=== PATIENT | female | born 1990 | race Caucasian/White ===

== ENCOUNTER 2023-12-29 13:33 | Outpatient (REF) | payer OTHER, SELFPAY ==
[2023-12-29 13:57] LABS: MANUAL DIFF FLAG NO
[2023-12-29 14:22] LABS: Basophils Absolute Auto 0.1 X10*3/uL (0.0-0.2); Basophils Percent Auto 0.8 % (0-2); Eosinophils Absolute Auto 0.4 X10*3/uL (0.0-0.4); Eosinophils Percent Auto 4.6 % (0-4); Hematocrit 42.2 % (37.0-47.0); Hemoglobin 13.7 g/dl (12.0-16.0); Imm Gran Abs Auto 0.03 X10*3/uL (0.00-0.03); Imm Gran Pct Auto 0.4 % (0.0-0.4); Lymphocytes Absolute Auto 3.1 X10*3/uL (1.2-4.9); Lymphocytes Percent Auto 35.9 % (20-40); Mean Corpuscular HGB Conc 32.5 g/dl (31.0-35.0); Mean Corpuscular Hemoglobin 28.5 pg (27.0-33.0); Mean Corpuscular Volume 87.9 fL (80.0-98.0); Mean Platelet Volume 10.1 fL (9.4-12.3); Monocytes Absolute Auto 0.5 X10*3/uL (0.1-1.2); Neutrophils Absolute Auto 4.5 x10*3/uL (2.0-8.3); Neutrophils Percent Auto 52.3 % (45-73); Platelet Count 301 X10*3/uL (160-400); Red Cell Distribution Width 12.9 % (11.0-16.0); White Blood Count 8.6 X10*3/uL (4.8-10.8)
[2023-12-29 14:48] LABS: Alanine Aminotransferase 26 U/L (0-31); Albumin Level 4.4 g/dL (3.5-5.0); Alkaline Phosphatase 61 U/L (39-117); Anion Gap 13 (12-20); Aspartate Amino Transferase 19 U/L (5-31); Bilirubin Total 0.5 mg/dL (0.0-1.0); Blood Urea Nitrogen 12 mg/dL (9-16); Calcium 9.6 mg/dL (8.4-10.2); Carbon Dioxide 23 mmol/L (22-29); Chloride 108 mmol/L (96-108); Estimated Glomerular Filt Rate > 60; Glucose Random 92 mg/dL (60-115); Potassium 4.2 mmol/L (3.3-5.1); Sodium 140 mmol/L (135-145); Total Protein 7.1 g/dL (6.5-8.0)
[2024-01-02 16:53] LABS: HCV RNA PCR Qn 3.91 Log IU/mL (NOT DETECTED); HCV RNA PCR Qn 8060 IU/mL (NOT DETECTED)
[2024-01-09 17:48] LABS: HCV Genotype LiPA 1a
== END 2023-12-29 13:34 | disposition home or self-care (01) ==
LOC: HO.LAB 13:33
PROVIDERS: PCP Internal Medicine; Visit Provider Internal Medicine
DX: Z00.00 Encounter for general adult medical examination without abnormal findings (principal); B18.2 Chronic viral hepatitis C; D22.5 Melanocytic nevi of trunk; D22.9 Melanocytic nevi, unspecified; Z13.31 Encounter for screening for depression
CPT/HCPCS: 36415; 80053; 85025; 87522; 87902

== ENCOUNTER 2024-05-13 15:20 | Outpatient (REF) | payer OTHER, SELFPAY ==
[2024-05-13 15:39] LABS: MANUAL DIFF FLAG NO
[2024-05-13 15:44] LABS: Basophils Absolute Auto 0.1 X10*3/uL (0.0-0.2); Basophils Percent Auto 0.7 % (0-2); Eosinophils Absolute Auto 0.1 X10*3/uL (0.0-0.4); Eosinophils Percent Auto 1.4 % (0-4); Hemoglobin 14.9 g/dl (12.0-16.0); Imm Gran Abs Auto 0.02 X10*3/uL (0.00-0.03); Imm Gran Pct Auto 0.2 % (0.0-0.4); Lymphocytes Absolute Auto 2.6 X10*3/uL (1.2-4.9); Lymphocytes Percent Auto 25.9 % (20-40); Mean Corpuscular HGB Conc 33.1 g/dl (31.0-35.0); Mean Corpuscular Hemoglobin 28.8 pg (27.0-33.0); Mean Corpuscular Volume 86.9 fL (80.0-98.0); Mean Platelet Volume 9.8 fL (9.4-12.3); Monocytes Absolute Auto 0.5 X10*3/uL (0.1-1.2); Monocytes Percent Auto 4.5 % (2-11); Neutrophils Absolute Auto 6.9 x10*3/uL (2.0-8.3); Neutrophils Percent Auto 67.3 % (45-73); Platelet Count 270 X10*3/uL (160-400); Red Blood Count 5.18 X10*6/uL (4.20-5.50); Red Cell Distribution Width 13.1 % (11.0-16.0); White Blood Count 10.2 X10*3/uL (4.8-10.8)
[2024-05-13 15:50] LABS: INTERNATIONAL NORM RATIO 0.9 (0.9-1.1)
[2024-05-13 16:39] LABS: Alanine Aminotransferase 37 U/L (0-31); Albumin Level 4.8 g/dL (3.5-5.0); Alkaline Phosphatase 56 U/L (39-117); Anion Gap 9 (12-20); Aspartate Amino Transferase 24 U/L (5-31); Bilirubin Direct 0.3 mg/dL (0.0-0.5); Bilirubin Total 0.8 mg/dL (0.0-1.0); Blood Urea Nitrogen 10 mg/dL (9-16); Calcium 9.6 mg/dL (8.4-10.2); Carbon Dioxide 25 mmol/L (22-29); Chloride 109 mmol/L (96-108); Estimated Glomerular Filt Rate > 60; Glucose Random 87 mg/dL (60-115); Potassium 3.4 mmol/L (3.3-5.1); Sodium 140 mmol/L (135-145)
[2024-05-13 16:51] LABS: Thyroid Stimulating Hormone 0.99 uIU/mL (0.32-4.0)
[2024-05-13 17:11] LABS: T4 Thyroxine 7.2 ug/dL (4.5-12.0)
[2024-05-14 15:43] LABS: HCV Log PCR 5.24 Log IU/mL (NOT DETECTED); HepC Viral Load 173000 IU/mL (NOT DETECTED)
[2024-05-16 08:15] LABS: HBS Num1 > 1000.00 mIU/mL (0-7.99); HBc Num1 0.12 S/CO (0.00-0.79); HBsAGNum1 0.39 S/CO (0.00-0.99); HIV AB/AG Nonreactive (Nonreactive); HIV Num 1 0.04 S/CO (0.00-0.99); Hepatitis B Core Antibody Nonreactive (Nonreactive); Hepatitis B Surface Antigen Negative (Negative); ~HepC Num1 13.03 S/CO (0.00-0.79); ~Hepatitis B Surface Antibody REACTIVE (Nonreactive); ~Hepatitis C Antibody Reactive (Nonreactive)
[2024-05-16 13:18] LABS: Alpha Fetoprotein 4.2 ng/mL
--- OUTSIDE RECORDS SUMMARY | 2024-05-18 10:49 | XMS_ITS ---
Author Organization [facility] Address [address] [place] [address] Care Team Providers Care Ambulance Mechanic Name Role Phone Shani De La Rosa Primary Care Provider Unavailab Mamadou Ulloa [phone] ALLERGIES No Known Allergies RESULTS Component Value Reference Range Notes Prothrombin Time INR Reviewed date:05/13/2024 04:30:01 PM Interpretation: Performing Lab:[address] [address] Notes/Report: Prothrombin Time 11.0 10.9-12.4 SEC INTERNATIONAL NORM RATIO 0.9 0.9-1.1 INTERNATIONAL NORMALIZED RATIO (INR) REFERENCE RANGES Reference Range For patients not on anticoagulant therapy: 0.9 - 1.1 INR ranges for oral anticoagulant therapy: For prevention and treatment of venous thrombosis and pulmonary embolism: 2.0 - 3.0 For acute myocardial infarction with aspirin therapy: 2.0 - 3.0 For acute myocardial infarction without aspirin therapy: 3.0 - 4.0 For patients with mechanical prosthetic heart valves: 2.5 - 3.5 T4 Thyroxine Reviewed date:05/13/2024 06:09:46 PM Interpretation: Performing Lab:[address] [address] Notes/Report: T4 Thyroxine 7.2 4.5-12.0 ug/dL HIV Ab/Ag Reviewed date:05/17/2024 09:19:18 PM Interpretation: Performing Lab:[facility], [address] [place] [phone] Notes/Report: HIV AB/AG Nonreactive Nonreactive HIV-1 p24 Ag and/or HIV-1/HIV-2 Ab not detected. A test result that is nonreactive does not exclude the possibility of exposure to or infection with HIV-1 and/or HIV-2. Nonreactive results in this assay for individuals with prior exposure to HIV-1 and/or HIV-2 may be due to antigen and antibody levels that are below the limit of detection of this assay. [employer] [facility] [employer] HIV Ag/Ab Combo assay result and supplemental assay results should be interpreted in conjunction with the patient's clinical presentation, history and other laboratory results. If the results are inconsistent with clinical evidence, additional testing is suggested to confirm the result. REASON FOR VISIT Patient presents today for HEPATITIS C 1A MEDICATIONS Medication SIG (Take, Route, Fr equency, Duration) Notes Start Date End Date Status Zofran ODT Active Omeprazole 20 MG 1 Orally Once a day every morning for 30 day(s) 05/13/2024 Active SOCIAL HISTORY Tobacco Use: Social History Observation Description Date Details (start date - stop date) Current Smoker NA - NA Sex Assigned At : Social History Observation Description Sex Assigned At Unknown Tobacco Use/Smoking Question Answer Notes Patient is a current smoker How often do you smoke cigarettes? every day How many cigarettes a day do you smoke? 5 or les s Alcohol Screen Question Answer Notes Did you have a drink contain ing alcohol in the past year? Yes How often did you have a dri nk containing alcohol in the past year? Never (0 point) How many drinks did you have on a typical day when you were drinking in the past year? 1 or 2 drinks (0 point) How often did you have 6 or more drinks on one occasion in the past year? Never (0 point) Points 0 Interpretation Negative PROBLEMS Problem Type ICD Code Onset Dates Problem Status W/U Status Risk SNOMED Code Notes Problem Nausea (R11.0) Active confirmed Nausea (024172153) Problem Chronic hepatitis C (B18.2) Active confirmed Chronic hepatitis C (771175107) VITAL SIGNS BMI 20.30 kg/m2 05/13/2024 Blood pressure systolic 00 mm Hg 05/13/20 24 Blood pressure diastolic 00 mm Hg 024 Height 5 ft 5 in in 05/13/2024 Weight 122 lbs 05/13/2024 Encounters Encounter Location Date Provider Diagnosis [facility] [address] [place] [address] 05/13/2024 Mamadou Casas Nausea R11.0 and Chronic hepatitis C B18.2 ASSESSMENTS Encounter Date Diagnosis Assessment Notes Treatment Notes Treatment Clinical Notes 05/13/2024 Nausea (ICD-10 - R11.0) Use Zofran as needed for nausea, but I will send over a prescription for a medicine to lower your stomach acid that you can try for two months 05/13/2024 Chronic hepatitis C (ICD-10 - B18.2) Need U/S from [facility] in 2023 PLAN OF TREATMENT Medication Medication Name Sig Start Date Stop Date Notes Omeprazole 20 MG 1 Orally Once a day every morning for 30 day(s) 05/13/2024 Treatment Notes Assessment Notes Nausea Use Zofran as needed for nausea, but I will send over a prescription for a medicine to lower your stomach acid that you can try for two months Chronic hepatitis C Need U/S from [facility] in 2023 Pending Test Test Name Order Date CHEM 7 PROFILE 05/13/2024 LIVER PROFILE 05/13/2024 TSH (THYROID STIMULATING HORMONE) 2023 CBC w DIFF 05/13/2024 HEPATITIS B PROFILE 05/13/2024 ALPHA-FETOPROTEIN,TUMOR MARKER 4 HEPATITIS C VIRAL LOAD 05/13/2024 HCV LIVER FIBROSIS, FIBRO TEST Next Appt Details Follow Up: OV October or November 25, Reason: Provider Name:Mamadou Casas , 11/10/2024 09:40:00 AM, [address], [address], [place], [address],
--- OUTSIDE RECORDS SUMMARY | 2024-05-18 10:49 | XMS_ITS | Patient Health Record ---
Author Organization [facility] Address [address] [place] [address] Care Team Providers Care Plain Clothes Police Officer Name Role Phone Shani De La Rosa Primary Care Provider Unavailab Mamadou Ulloa [phone] ALLERGIES No Known Allergies RESULTS Component Value Reference Range Notes Prothrombin Time INR Reviewed date:05/13/2024 04:30:01 PM Interpretation: Performing Lab:[address] [address] Notes/Report: Prothrombin Time 11.0 10.9-12.4 SEC INTERNATIONAL [...] Thyroxine Reviewed date:05/13/2024 06:09:46 PM Interpretation: Performing Lab:[facility], [address] [place] [phone] Notes/Report: T4 Thyroxine 7.2 4.5-12.0 ug/dL HIV Ab/Ag Reviewed date:05/17/2024 09:19:18 PM Interpretation: Performing Lab:[address] [address] Notes/Report: HIV AB/AG Nonreactive Nonreactive HIV-1 p24 [...] limit of detection of this assay. The [employer] HIV Ag/Ab Combo assay result and supplemental assay results should be interpreted in conjunction with the patient's clinical presentation, history and other laboratory results. If the results are inconsistent with clinical evidence, additional testing is suggested to confirm the result. Hep C Viral Load (Not yet re viewed by provider) Interpretation: Performing Lab:[facility], [address] [place] [phone] Notes/Report: HepC Viral Load 602050 NOT DETECTED IU/mL HCV Log PCR 5.24 NOT DETECTED Log IU/mL For additional information, please refer to http://education.QuadROI/faq/FA Q22v1 (This link is being provided for informational/ educational purposes only.) THIS TEST WAS PERFORMED AT: [facility] [address] [place] [phone] MAVERICK CORNELL MD Complete Blood Count Auto Di ff Reviewed date:05/13/2024 04:29:41 PM Interpretation: Performing Lab:[facility], [address] [place] [phone] Notes/Report: White Blood Count 10.2 4.8-10.8 X10*3/uL Red Blood Count 5.18 4.20-5.50 X10*6/uL Hemoglobin 14.9 12.0-16.0 g/dl Hematocrit 45.0 37.0-47.0 % Mean Corpuscular Volume 86.9 80.0-98.0 fL Mean Corpuscular Hemoglobin 28.8 27.0-33.0 pg Mean Corpuscular HGB Conc 33.1 31.0-35.0 g/dl Red Cell Distribution Width 13.1 11.0-16.0 % Platelet Count 270 160-400 X10*3/uL Mean Platelet Volume 9.8 9.4-12.3 fL Neutrophils Percent Auto 67.3 45-73 % Imm Gran Pct Auto 0.2 0.0-0.4 % Lymphocytes Percent Auto 25.9 20-40 % Monocytes Percent Auto 4.5 2-11 % Eosinophils Percent Auto 1.4 0-4 % Basophils Percent Auto 0.7 0-2 % NRBC Pct Auto 0.0 0.0-0.2 /100WBC Neutrophils Absolute Auto 6.9 2.0-8.3 x10*3/u L Imm Gran Abs Auto 0.02 0.00-0.03 X10*3/uL Lymphocytes Absolute Auto 2.6 1.2-4.9 X10*3/u L Monocytes Absolute Auto 0.5 0.1-1.2 X10*3/uL Eosinophils Absolute Auto 0.1 0.0-0.4 X10*3/u L Basophils Absolute Auto 0.1 0.0-0.2 X10*3/uL NRBC Abs Auto 0.000 0.0-0.012 X10*3/uL Liver Panel Reviewed date:05/13/2024 06:09:10 PM Interpretation: Performing Lab:[facility], [address] [place] [phone] Notes/Report: Bilirubin Total 0.8 0.0-1.0 mg/dL Bilirubin Direct 0.3 0.0-0.5 mg/dL Aspartate Amino Transferase 24 5-31 U/L Alanine Aminotransferase 37 0-31 U/L Total Protein 8.0 6.5-8.0 g/dL Albumin Level 4.8 3.5-5.0 g/dL Alkaline Phosphatase 56 39-117 U/L Basic Metabolic Panel Reviewed date:05/13/2024 06:09:33 PM Interpretation: Performing Lab:[facility], [address] [place] [phone] Notes/Report: Sodium 140 135-145 mmol/L Potassium 3.4 3.3-5.1 mmol/L Chloride 109 96-108 mmol/L Carbon Dioxide 25 22-29 mmol/L Anion Gap 9 12-20 Blood Urea Nitrogen 10 9-16 mg/dL Creatinine 0.79 0.5-1.4 mg/dL Estimated Glomerular Filt Rate > 60 Chronic Kidney Disease: Estimated GFR < 60 mL/min/1.73m2 Severe Kidney Disease: Estimated GFR < 15 mL/min/1.73m2 Glucose Random 87 60-115 mg/dL Calcium 9.6 8.4-10.2 mg/dL Thyroid Stimulating Hormone Reviewed date:05/13/2024 06:09:40 PM Interpretation: Performing Lab:[facility], [address] [place] [phone] Notes/Report: Thyroid Stimulating Hormone 0.99 0.32-4.0 uIU/ mL TSH 3rd Generation ([facility]) Hepatitis B Profile Reviewed date:05/17/2024 09:18:52 PM Interpretation: Performing Lab:[facility], [address] [place] [phone] Notes/Report: Hepatitis B Surface Antibody REACTIVE Nonreactive REACTIVE: > 11.99 mIU/mL Hepatitis B Core Antibody Nonreactive Nonreactive Hepatitis B Surface Antigen Negative Negative Hepatitis C Antibody Reviewed date:05/17/2024 09:19:03 PM Interpretation: Performing Lab:[facility], [address] [place] [phone] Notes/Report: Hepatitis C Antibody Reactive Nonreactive Presump tive evidence of antibodies to HCV. REASON FOR REFERRAL No Information MEDICATIONS Medication SIG (Take, Route, Fr equency, [...] Notes Problem Nausea (R11.0) Active confirmed Nausea (224415777) Problem Chronic hepatitis C (B18.2) Active confirmed Chronic hepatitis C (457356895) VITAL SIGNS Blood pressure diastolic 00 mm Hg 05/13/2024 Height 5 ft 5 in in 05/13/2024 Blood pressure systolic 00 mm Hg 05/13/2024 Weight 122 lbs 05/13/2024 BMI 20.30 kg/m2 05/13/2024 Encounters Encounter Location Date Provider Diagnosis [facility] [address] [place] [address] 05/13/2024 Mamadou Casas Nausea R11.0 and Chronic [...] C (ICD-10 - B18.2) Need U/S from [facility] in 2023 PLAN OF TREATMENT Pending Test Test Name Order Date CHEM 7 PROFILE 05/13/2024 LIVER PROFILE 05/13/2024 TSH (THYROID STIMULATING HORMONE) 2023 CBC w DIFF 05/13/2024 HEPATITIS B PROFILE 05/13/2024 ALPHA-FETOPROTEIN,TUMOR MARKER 4 HEPATITIS C VIRAL LOAD 05/13/2024 HCV LIVER FIBROSIS, FIBRO TEST 4 Hep C Viral Load 05/13/2024 Next Appt Details Provider Name:Mamadou Casas , 11/10/2024 09:40:00 AM, [address], [address], [place], [address], Insurance Providers Payer Name Payer Address Payer Phone Subscriber Number Group Number Insured Name Patient Relationship to Insured Coverage Start Date Coverage End Date [facility] [employer] [facility] [address] [address] [place], [place] [id number] LUCERO MCDONOUGH Self - patient is the insured MED[place] OF [place] [address] [place] [address] [id number] CIEBOTER, LUCERO Self - patient is the insured MEDICAL (GENERAL) HISTORY Medical History History ICD Code Kidney stones Chronic Hep C-Genotype 1 A Surgical History Surgery Date(Month/Year) 2023
[2024-05-23 16:30] LABS: FIB-ALT 23 U/L (6-29); FIB-Alpha-2-Macroglobulin 190 mg/dL (106-279); FIB-Apolipoprotein A1 195 mg/dL (101-198); FIB-GGT 16 U/L (3-50); FIB-Haptoglobin 129 mg/dL (43-212); FIB-Total Bilirubin 0.6 mg/dL (0.2-1.2); Liver Fibrosis Score 0.06; Liver Fibrosis Stage F0; Nec Inflam Act Grade A0; Nec Inflam Act Score 0.07; Reference ID 5248223
== END 2024-05-13 15:21 | disposition home or self-care (01) ==
LOC: HO.LAB 15:20
PROVIDERS: PCP Internal Medicine; Visit Provider Internal Medicine
DX: B18.2 Chronic viral hepatitis C (principal)
CPT/HCPCS: 36415; 80048; 80076; 81596; 82105; 84436; 84443; 85025; 85610; 86704; 86706; 86803; 87340; 87389; 87522

== ENCOUNTER 2024-08-09 07:10 | Emergency (ER) | payer OTHER, SELFPAY ==
[2024-08-09 07:18] VITALS: BP 104/65; PULSE 61; RESP 16; TEMP 36.5; O2SAT 100; BMI 20.8
[2024-08-09 08:17] LABS: Basophils Absolute Auto 0.1 X10*3/uL (0.0-0.2); Basophils Percent Auto 0.6 % (0-2); Eosinophils Absolute Auto 0.1 X10*3/uL (0.0-0.4); Eosinophils Percent Auto 0.6 % (0-4); Hematocrit 41.3 % (37.0-47.0); Hemoglobin 14.4 g/dl (12.0-16.0); Imm Gran Abs Auto 0.03 X10*3/uL (0.00-0.03); Imm Gran Pct Auto 0.3 % (0.0-0.4); Lymphocytes Absolute Auto 1.5 X10*3/uL (1.2-4.9); Lymphocytes Percent Auto 17.3 % (20-40); MANUAL DIFF FLAG NO; Mean Corpuscular HGB Conc 34.9 g/dl (31.0-35.0); Mean Corpuscular Hemoglobin 29.8 pg (27.0-33.0); Mean Corpuscular Volume 85.5 fL (80.0-98.0); Monocytes Absolute Auto 0.4 X10*3/uL (0.1-1.2); Monocytes Percent Auto 4.6 % (2-11); Neutrophils Absolute Auto 6.7 x10*3/uL (2.0-8.3); Neutrophils Percent Auto 76.6 % (45-73); Platelet Count 347 X10*3/uL (160-400); Red Blood Count 4.83 X10*6/uL (4.20-5.50); Red Cell Distribution Width 12.8 % (11.0-16.0); White Blood Count 8.7 X10*3/uL (4.8-10.8)
[2024-08-09 08:29] LABS: UPreg QC Valid YES; Urine Pregnancy NEGATIVE (NEGATIVE)
[2024-08-09 08:30] LABS: Appearance Urine Turbid; Color Urine Dark Yellow; Glucose Urine UA Negative (Negative); Leukocyte Esterase Urine Small (1+) (Negative); Nitrite Urine Negative (Negative); PH 6.5 (5.0-9.0); Specific Gravity - Urine >= 1.030 (1.005-1.025); UMIC TRIGGER UACC YES; Urine Blood Negative (Negative); Urine Ketones 80 mg/dL (Negative); Urine Protein 30 (1+) mg/dL (Neg-Trace)
[2024-08-09 08:36] LABS: Alanine Aminotransferase 23 U/L (0-31); Albumin Level 4.5 g/dL (3.5-5.0); Alkaline Phosphatase 55 U/L (39-117); Anion Gap 13 (12-20); Aspartate Amino Transferase 26 U/L (5-31); Bilirubin Total 0.8 mg/dL (0.0-1.0); Blood Urea Nitrogen 15 mg/dL (9-16); Calcium 9.3 mg/dL (8.4-10.2); Carbon Dioxide 24 mmol/L (22-29); Chloride 107 mmol/L (96-108); Estimated Glomerular Filt Rate > 60; Glucose Random 108 mg/dL (60-115); Potassium 3.4 mmol/L (3.3-5.1); Sodium 141 mmol/L (135-145); Total Protein 7.5 g/dL (6.5-8.0)
--- OUTSIDE RECORDS SUMMARY | 2024-08-09 08:36 | XMS_ITS ---
Author Organization [facility] Address [address] [place] [address] Care Team Providers Care Weed Control Inspector Name Role Phone Shani De La Rosa Primary Care Provider Unavailab Mamadou Ulloa [phone] REASON FOR VISIT Script sent MEDICATIONS Medication SIG (Take, Route, Frequency, Duration) Notes Start Date End Date Status Ledipasvir-Sofosbuvir 90-400 MG 1 tablet Orally Once a day for 30 days 06/08/2024 Active Encounters Encounter Location Date Provider Diagnosis [place] [facility] [address] [place] [phone] 06/07/2024 Mamadou Casas PLAN OF TREATMENT Medication Medication Name Sig Start Date Stop Date Notes Ledipasvir-Sofosbuvir 90-400 MG 1 tablet Orally Once a day for 30 days 06/08/2024 Next Appt Details Provider Name:Mamadou Casas , 11/10/2024 09:40:00 AM, [address] [place] [address], [address], [place], [address],
--- OUTSIDE RECORDS SUMMARY | 2024-08-09 08:36 | XMS_ITS ---
Author Organization [facility] Address [address] [place] [address] Care Team Providers Care Pit And Auxiliaries Supervisor Name Role Phone AnselmotevinShani Primary Care Provider Unavailab Mamadou Ulloa Unavailable [phone] Encounters Encounter Location Date Provider Diagnosis [facility] [address] [place] [address] [place] [phone] 06/09/2024 Mamadou Casas PLAN OF TREATMENT Next Appt Details Provider Name:Mamadou Casas , 11/10/2024 09:40:00 AM, [address] [place] [address], [address], [place], [address],
--- OUTSIDE RECORDS SUMMARY | 2024-08-09 08:37 | XMS_ITS | Patient Health Record ---
Author Organization [facility] Address [address] [place] [address] Care Team Providers Care Claim Auditor Name Role Phone Shani De La Rosa Primary Care Provider Unavailab Mamadou Ulloa [phone] ALLERGIES No Known Allergies RESULTS Component Value Reference Range Notes Prothrombin Time INR Reviewed date:05/13/2024 04:30:01 PM Interpretation: Performing Lab:[address] [phone] Notes/Report: Prothrombin Time 11.0 10.9-12.4 SEC INTERNATIONAL [...] Thyroxine Reviewed date:05/13/2024 06:09:46 PM Interpretation: Performing Lab:[address] [phone] Notes/Report: T4 Thyroxine 7.2 4.5-12.0 ug/dL HIV Ab/Ag Reviewed date:05/17/2024 09:19:18 PM Interpretation: Performing Lab:[address] [address] Notes/Report: HIV AB/AG Nonreactive Nonreactive HIV-1 p24 [...] limit of detection of this assay. The [employer] HIV Ag/Ab Combo assay result and supplemental assay results should be interpreted in conjunction with the patient's clinical presentation, history and other laboratory results. If the results are inconsistent with clinical evidence, additional testing is suggested to confirm the result. Complete Blood Count Auto Di ff Reviewed date:05/13/2024 04:29:41 PM Interpretation: Performing Lab:[facility], [address] [place] [address] Notes/Report: White Blood Count 10.2 4.8-10.8 X10*3/uL [...] Panel Reviewed date:05/13/2024 06:09:10 PM Interpretation: Performing Lab:[address] [phone] Notes/Report: Bilirubin Total 0.8 0.0-1.0 mg/dL Bilirubin Direct 0.3 0.0-0.5 mg/dL Aspartate Amino Transferase 24 5-31 U/L Alanine Aminotransferase 37 0-31 U/L Total Protein 8.0 6.5-8.0 g/dL Albumin Level 4.8 3.5-5.0 g/dL Alkaline Phosphatase 56 39-117 U/L Basic Metabolic Panel Reviewed date:05/13/2024 06:09:33 PM Interpretation: Performing Lab:[facility], [address] [place] [phone] Notes/Report: Sodium 140 135-145 mmol/L Potassium 3.4 [...] Hormone Reviewed date:05/13/2024 06:09:40 PM Interpretation: Performing Lab:[address] [phone] Notes/Report: Thyroid Stimulating Hormone 0.99 0.32-4.0 uIU/ mL TSH 3rd Generation ([facility]) Alpha Fetoprotein Reviewed date:05/24/2024 05:01:11 PM Interpretation: Performing Lab:[facility], [address] [place] [phone] Notes/Report: Alpha Fetoprotein 4.2 Reference Range: <6.1 The use of AFP as a tumor marker in females is not recommended. This test was performed using the [employer] chemiluminescent method. Values obtained from different assay methods cannot be used interchangeably. AFP levels, regardless of value, should not be interpreted as absolute evidence of the presence or absence of disease. THIS TEST WAS PERFORMED AT: [facility] [address] [place] [phone] MAVERICK CORNELL MD Liver Fibrosis Pnl Reviewed date:05/24/2024 05:01:20 PM Interpretation: Performing Lab:[facility], [address] [place] [phone] Notes/Report: Liver Fibrosis Score 0.06 Liver Fibrosis Stage F0 Liver Fibrosis Interpretation SEE NOTE no fibrosis Fibro Test Score (f) Metavir Score f>=0 and f<=0.21 : F0 (no fibrosis) f>0.21 and f<=0.27 : F0-F1 (no fibrosis) f>0.27 and f<=0.31 : F1 (minimal fibrosis) f>0.31 and f<=0.48 : F1-F2 (minimal fibrosis) f>0.48 and f<=0.58 : F2 (moderate fibrosis) f>0.58 and f<=0.72 : F3 (advanced fibrosis) f>0.72 and f<=0.74 : F3-F4 (advanced fibrosis) f>0.74 and f<=1.00 : F4 (severe fibrosis) Nec Inflam Act Score 0.07 Nec Inflam Act Grade A0 Nec Inflam Act Interpretation SEE NOTE no activity ActiTest Score (a) Metavir Score a>=0 and a<=0.17 : A0 (no activity) a>0.17 and a<=0.29 : A0-A1 (no activity) a>0.29 and a<=0.36 : A1 (minimal activity) a>0.36 and a<=0.52 : A1-A2 (minimal activity) a>0.52 and a<=0.60 : A2 (significant activity) a>0.60 and a<=0.62 : A2-A3 (significant activity) a>0.62 and a<=1.00 : A3 (severe activity) MSJ-Yzwsb-3-Macroglobulin 190 106-279 mg/dL FIB-Haptoglobin 129 43-212 mg/dL FIB-Apolipoprotein A1 195 101-198 mg/dL FIB-Total Bilirubin 0.6 0.2-1.2 mg/dL FIB-GGT 16 3-50 U/L FIB-ALT 23 6-29 U/L Reference ID [id number] Footnote SEE NOTE The reliability of results is dependent on compliance with the preanalytical and analytical conditions recommended by [employer]. The tests have to be deferred for: acute hemolysis, acute hepatitis, acute inflammation, extra hepatic cholestasis. The advice of a specialist should be sought for interpretation in chronic hemolysis and Gilbert's syndrome. The test interpretation is not validated in liver transplant patients. Isolated extreme values of one of the components should lead to caution in interpreting the results. In case of discordance between a biopsy result and a test, it is recommended to seek the advice of a specialist. The causes of these discordances could be due to a flaw of the test or to a flaw in the biopsy: i.e. a liver biopsy has a 33% variability rate for one fibrosis stage. FibroTest is interpretable for chronic hepatitis B and C, alcoholic and non alcoholic steatosis. ActiTest is interpretable for chronic hepatitis B and C. The performance characteristics have been determined by [facility]. It has not been cleared or approved by the U.S. Food and Drug Administration. Performance characteristics refer to the analytical performance of the test. Metabar, the associated logo, Linkage and all associated [employer] garcía are the registered trademarks of [employer] All third libertarian garcía - (R) and (TM) - are the property of their respective owners. (C) 8701-1949 [employer] Incorporated. All rights reserved. THIS TEST WAS PERFORMED AT: [facility] [address] [place] [address] CODY BALDERAS MD,PHD,PATY Hep C Viral Load Reviewed date:05/29/2024 01:04:27 PM Interpretation: Performing Lab:[facility], [address] [place] [phone] Notes/Report: HepC Viral Load [id number] NOT DETECTED IU/mL HCV Log PCR 5.24 NOT DETECTED Log IU/mL For additional information, please refer to http://Silversky.BioMers/faq/ROY42n9 (This link is being provided for informational/ educational purposes only.) THIS TEST WAS PERFORMED AT: [facility] [address] [place] [phone] MAVERICK CORNELL MD Hepatitis B Profile Reviewed date:05/17/2024 09:18:52 PM Interpretation: Performing Lab:[facility], [address] [place] [phone] Notes/Report: Hepatitis B Surface Antibody REACTIVE Nonreactive REACTIVE: > 11.99 mI U/mL Hepatitis B Core Antibody Nonreactive Nonreactive Hepatitis B Surface Antigen Negative Negative Hepatitis C Antibody Reviewed date:05/17/2024 09:19:03 PM Interpretation: Performing Lab:[facility], [address] [place] [phone] Notes/Report: Hepatitis C Antibody Reactive Nonreactive Presump tive evidence of antibodies to HCV. REASON FOR REFERRAL No Information MEDICATIONS Medication SIG (Take, Route, Frequency, Duration) Notes Start Date End Date Status Ledipasvir-Sofosbuvir 90-400 MG 1 tablet Orally Once a day for 30 days 06/09/2024 Active Ledipasvir-Sofosbuvir 90-400 MG 1 tablet Orally Once a day for 30 days 06/08/2024 Active Zofran ODT Active Omeprazole 20 MG 1 [...] Notes Problem Nausea (R11.0) Active confirmed Nausea (773384613) Problem Chronic hepatitis C (B18.2) Active confirmed Chronic hepatitis C (753864197) VITAL SIGNS Blood pressure diastolic 00 mm Hg 05/13/2024 Height 5 ft 5 in in 05/13/2024 Blood pressure systolic 00 mm Hg 05/13/2024 Weight 122 lbs 05/13/2024 BMI 20.30 kg/m2 05/13/2024 Encounters Encounter Location Date Provider Diagnosis [facility] [address] [place] [phone] 05/13/2024 Mamadou Casas Nausea R11.0 and Chronic hepatitis C B18.2 [facility] [address] [place] [phone] 05/29/2024 Mamadou Casas Chronic hepatitis C B18.2 [facility] [address] [place] [address] 06/07/2024 Mamadou Casas [facility] [address] [place] [address] 06/09/2024 Mamadou Casas ASSESSMENTS Encounter Date Diagnosis Assessment Notes Treatment Notes Treatment Clinical Notes 05/13/2024 Nausea (ICD-10 - R11.0) Use Zofran as needed for nausea, but I will send over a prescription for a medicine to lower your stomach acid that you can try for two months 05/13/2024 Chronic hepatitis C (ICD-10 - B18.2) Need U/S from [facility] in 202305/29/2024 Chronic hepatitis C (ICD-10 - B18.2) PLAN OF TREATMENT Pending Test Test Name Order Date CHEM 7 PROFILE 05/13/2024 LIVER PROFILE 05/29/2024 LIVER PROFILE 05/13/2024 TSH (THYROID STIMULATING HORMONE) 2023 CBC w DIFF 05/13/2024 CBC w DIFF 05/29/2024 HEPATITIS B PROFILE 05/13/2024 ALPHA-FETOPROTEIN,TUMOR MARKER HEPATITIS C VIRAL LOAD 05/29/2024 HEPATITIS C VIRAL LOAD 05/13/2024 HCV LIVER FIBROSIS, FIBRO TEST 4 Next Appt Details Provider Name:Mamadou Casas , 11/10/2024 09:40:00 AM, [address], [address], [place], [address], Insurance Providers Payer Name Payer Address Payer Phone Subscriber Number Group Number Insured Name Patient Relationship to Insured Coverage Start Date Coverage End Date [facility] [address] [address] [place], [place] [id number] LUCERO MCDONOUGH Self - patient is the insured MEDICAID OF [facility] [address] [place] [address] [phone] [id number] LUCERO MCDONOUGH Self - patient is the insured MEDICAL (GENERAL) HISTORY Medical History History ICD Code Kidney stones Chronic Hep C-Genotype 1 A Previous substance abuse, including IVDA --reports sobriey since 2017 Surgical History Surgery Date(Month/Year) 2023
--- OUTSIDE RECORDS SUMMARY | 2024-08-09 08:37 | XMS_ITS ---
Author Organization [facility] Address [address] [place] [address] Care Team Providers Care Quarrying Specialist Name Role Phone hSani De La Rosa Primary Care Provider Unavailab Mamadou Ulloa Unavailable [phone] REASON FOR VISIT Hep C treatment MEDICATIONS Medication SIG (Take, Route, Frequency, Duration) Notes Start Date End Date Status Ledipasvir-Sofosbuvir 90-400 MG 1 tablet Orally Once a day for 30 days 06/09/2024 Active Encounters Encounter Location Date Provider Diagnosis [facility] [address] [place] [id number] 05/29/2024 Mamadou Casas Chronic hepatitis C B18.2 ASSESSMENTS Encounter Date Diagnosis Assessment Notes Treatment Notes Treatment Clinical Notes 05/29/2024 Chronic hepatitis C (ICD-10 - B18.2) PLAN OF TREATMENT Medication Medication Name Sig Start Date Stop Date Notes Ledipasvir-Sofosbuvir 90-400 MG 1 tablet Orally Once a day for 30 days 06/09/2024 Pending Test Test Name Order Date LIVER PROFILE 05/29/2024 CBC w DIFF 05/29/2024 HEPATITIS C VIRAL LOAD 05/29/2024 Next Appt Details Provider Name:Mamadou Casas , 11/10/2024 09:40:00 AM, [address], [address], [place], [id number],
[2024-08-09 08:39] LABS: Bacteria Urine 3+ (None Seen); Calcium Oxalate Crystals Urine Present; Hyaline Casts Urine 0-2 /LPF (0-2); Squamous Epithelial Cell Urine >20 /HPF (0-2); UACC Culture Trigger YES
[2024-08-09 09:29] LABS: Influenza A PCR NEGATIVE (Negative); Influenza B PCR NEGATIVE (Negative); Resp Syncy Virus RNA Qual PCR NEGATIVE (Negative); SARS COV2 PCR INHOUSE NEGATIVE (Negative)
--- NOTE | 2024-08-09 11:38 | PC.NURSE ---
NA at 11:37am.
== END 2024-08-09 15:31 | disposition left against medical advice (07) ==
PROVIDERS: Emergency Provider Emergency Medicine; PCP Internal Medicine
DX: M79.10 Myalgia, unspecified site (principal); R11.2 Nausea with vomiting, unspecified; Z03.818 Encounter for observation for suspected exposure to other biological agents ruled out; Z79.899 Other long term (current) drug therapy
CPT/HCPCS: 0241U; 36415; 80053; 81001; 81025; 85025; 87086; 99281; 99282